=== PATIENT | male | born 1995 | race African-American/Black ===

== ENCOUNTER 2023-12-18 21:16 | Emergency (ER) | payer BC ==
[2023-12-18 22:00] VITALS: BP 132/69; PULSE 67; RESP 17; TEMP 97.9; BMI 34.4
== END 2023-12-18 22:03 | disposition home or self-care (01) ==
LOC: FER 21:16
DX: R05.9 Cough, unspecified (principal); R09.81 Nasal congestion; R19.7 Diarrhea, unspecified; Z20.822 Contact with and (suspected) exposure to COVID-19
CPT/HCPCS: 0241U-QW; 99283-25

== ENCOUNTER 2025-01-27 01:57 | Emergency (ER) | payer BC ==
[2025-01-27 02:08] VITALS: BP 116/57; PULSE 80; RESP 16; TEMP 98.1; BMI 34.4
== END 2025-01-27 05:27 | disposition left against medical advice (07) ==
LOC: FER 01:57
DX: S00.03XA Contusion of scalp, initial encounter (principal); S00.83XA Contusion of other part of head, initial encounter; W10.8XXA Fall (on) (from) other stairs and steps, initial encounter
CPT/HCPCS: 70450-TC; 70486-TC; 99284-25